=== PATIENT | female | born 1945 | race Caucasian/White ===

== ENCOUNTER → 2020-07-22 | Outpatient (CLI) | payer MEDICARE, BC ==
[~2020-07-22] MED LIST: CALC-71 PO; LISI10TA2 PO; METF10007 PO; SIMV10TA15 PO; VITA1TAB19 PO
== END ==
LOC: LAB 08:10
PROVIDERS: ATTEND Nurse Anesthetist, Certified Registered
DX: Z01.812 Encounter for preprocedural laboratory examination (principal); Z86.010 Personal history of colon polyps; Z20.828 Contact with and (suspected) exposure to other viral communicable diseases
CPT/HCPCS: C9803; U0003

== ENCOUNTER → 2020-07-26 | Day surgery (SDC) | payer MEDICARE ==
[~2020-07-26] MED LIST changes: +IPRATRPIUM/ALBUTEROL 0.5/2.5MG 3 ML NEBU. NEB PRN; +IV RINGERS SOLUTION,LACTATED 1,000 ML IV SCH; +LIDOCAINE 2% PF 5 ML VIAL. ONE; +MIDAZOLAM HCL PF 2 MG/2 ML VIAL. IV ONE; +ONDANSETRON PF 4 MG/2 ML VIAL. IV PRN; +PROPOFOL 10,000 MCG/ML (20ML) VIAL IV ONE
[2020-07-26 12:38] VITALS: BP 118/70
--- NOTE | 2020-07-29 14:34 | PATHOLOGY ---
[facility] Accession Number: [id number] . 01 Material submitted: . PART A: colon - ASCENDING COLON POLYP, HOT SNARE. Modifiers: ascending PART B: colon - TRANSVERSE COLON POLYP, HOT SNARE. Modifiers: transverse . 01 Clinician provided ICD-10: Z86.010 . 01 Clinical history: . HX OF POLYPS . 02 Diagnosis: A. Colon biopsy, ascending colon polyp: - Tubular adenoma. . B. Colon biopsy, transverse colon polyp: - Hyperplastic polyp showing coagulation artifact. (JPM:[facility] 07/29/2020) [facility] 07/29/2020 0922 Local . 02 Comment: There is no high-grade dysplasia or evidence of malignancy. (JPM:[facility] 07/29/2020). . 02 Electronically signed: . Francisco J Capone MD, Pathologist NPI- [id number] . 01 Gross description: . A. The specimen is received in formalin, labeled "Maravilla, Riana, ascending colon polyp hot snare" and consists of a segment of pink-keene tissue measuring 0.6 x 0.5 x 0.2 cm which is entirely submitted in A1. . B. The specimen is received in formalin, labeled "Maravilla, Riana, hot snare transverse colon polyp" and consists of a fragment of pink-keene tissue measuring 0.5 x 0.3 cm which is entirely submitted in B1. (SDY; 07/28/2020) SYU/SYU 07/28/2020 1708 Local . 02 Pathologist provided ICD-10: D12.2, K63.5 . 02 CPT . 023092, [id number] Specimen Comment: A courtesy copy of this report has been sent to [phone] Specimen Comment: [id number] Specimen Comment: Report sent to / DR OCHOA Performed at: [address] [facility] [address], [place], [place] [id number] MD Mick Larios MD Phone: [phone] Performed at: 02 [facility] [address] [place], [place] [id number] MD Francisco J Capone MD Phone: [phone]
== END | disposition home or self-care (01) ==
LOC: SURG 10:01
PROVIDERS: ATTEND Internal Medicine Gastroenterology
DX: Z12.11 Encounter for screening for malignant neoplasm of colon (principal); D12.2 Benign neoplasm of ascending colon; K63.89 Other specified diseases of intestine; K57.30 Diverticulosis of large intestine without perforation or abscess without bleeding; Z86.010 Personal history of colon polyps; Z88.6 Allergy status to analgesic agent; Z79.899 Other long term (current) drug therapy; Z79.84 Long term (current) use of oral hypoglycemic drugs
CPT/HCPCS: 45385; 82947; J2001; J2704; J7120; 88305